=== PATIENT | female | born 1980 | race Caucasian/White ===

== ENCOUNTER 2019-06-06 10:26 | Emergency (ER) | payer BC, SELFPAY ==
[2019-06-06 10:27] VITALS: BP 133/74; PULSE 110; RESP 18; TEMP 36.4; O2SAT 100; BMI 27.3
--- NOTE | 2019-06-06 11:03 | ED.VIS.GEN ---
History of Present Illness Chief Complaint: Lower Extremity Injury Informant: Patient Onset: Today Context: Gradual Onset Timing: Continuous Current Severity: Moderate Maximum Severity: Moderate Narrative: Patient presents with pain in her left Achilles region. She denies any obvious recent injury however the pain has persisted over the past few months. This is worse with ambulating. She does stand on her feet all day and has to reach for objects quite often. Prior similar symptoms: Yes Recent Illness/Hospitalization: No Past Medical History - Allergies and Home Meds Allergies/Adverse Reactions: Allergies doxycycline Allergy (Verified 06/06/19 10:29) Hives Prior records reviewed: Yes Past Medical History: - - Narcolepsy Surgical History: noncontributory Lives: Spouse/ Significant Other Smoking Status: Current some day smoker Review of Systems General: Denies: Fever Gastrointestinal: Denies: Nausea Musculoskeletal: Reports: Myalgias. Denies: Neck pain Skin: Denies: Abrasions Neurological: Denies: Weakness, Parasthesia Physical Exam Vital Signs/Narrative: Vital Signs Temp Pulse Resp BP Pulse Ox 06/06/19 10:27 97.6 F L 110 H 18 133/74 H 100 General: Well nourished Head: Normocephalic Eyes: Perrl ENT: Negative for: Nasal congestion Neck: Negative for: Supple Cardiovascular: Regular rate, Regular rhythm Respiratory: No distress Abdomen: Soft, Nontender Back: Nontender. Negative for: Normal Inspection Extremities: No edema, - - There is quite a bit of tenderness along the Achilles tendon, the Achilles tendon itself is intact. Skin: Negative for: Normal color Neurological: Normal Sensation Diagnostic/Tx/Re-eval - Medical Decision Making Patient has Achilles tendinitis. I will treat as such. I will discharge in stable condition. ED Disposition - Plan for ED Patient: Disposition: Non-Skill NH/Intermediate Care Diagnosis: Achilles tendonitis Instructions: Treating Tendonitis of the Foot, Tendonitis Prescriptions: Methylprednisolone [Medrol] 4 mg PO DAILY #1 [email or web address] Prescription Printed
[2019-06-06] MEDS: Ketorolac 30 MG/ML Syringe IV (11:20)
== END 2019-06-06 11:45 | disposition home or self-care (01) ==
LOC: ED 11:19
PROVIDERS: Emergency Provider Emergency Medicine
DX: M76.62 Achilles tendinitis, left leg (principal); G47.419 Narcolepsy without cataplexy; F17.200 Nicotine dependence, unspecified, uncomplicated
CPT/HCPCS: 96374; 99282